=== PATIENT | female | born 1985 | race Two or more races ===

== ENCOUNTER 2023-06-11 20:52 | Emergency (ER) | payer OTHER ==
[~2023-06-11] VITALS: Ht 162.6 cm; Wt 65.9 kg
[2023-06-11] MEDS: TETANUS-DIPTH-ACEL PERTUSSIS 0.5ML SYR Tdap IM ONE (22:04)
[2023-06-11] MEDS: cefTRIAXone W LIDOCAINE 1 GM IM IM ONE (22:06)
[2023-06-11] MEDS: cefTRIAXone SOD 1,000 MG VL ONE (22:07)
[2023-06-11] MEDS: LIDOCAINE 2%HCL (LOCAL ANESTH.) INJ 10ml MDV ONE (22:07)
[2023-06-11] MEDS: LIDOCAINE W/ EPINEPHRINE 2% INJ 20ML VIAL ONE (22:07)
[2023-06-11] MEDS: ACETAMINOPHEN 500 MG TAB PO ONE (22:50)
[2023-06-11 23:37] LABS: Urine Bacteria FEW /hpf (None Seen); Urine Blood Negative /uL (Negative); Urine Budding Yeast OCCASIONAL /hpf (None Seen); Urine Clarity Turbid (Clear); Urine Color Light-Yellow (Yellow); Urine Hyaline Cast FEW /lpf (0 - 2); Urine Mucus FEW (None Seen); Urine Protein, UAD TRACE (Negative); Urine Urobilinogen Normal (Negative); Urine WBC 18 /hpf (0 - 5); Urine pH 7.5 (5.0-9.0)
[2023-06-11 23:39] LABS: Amphetamine Screen, Urine Pos (NEGATIVE); Barbiturate Scree,Urine Neg (NEGATIVE); Benzodiazephine Screen, Urine Neg (NEGATIVE); Cocaine Screen, Urine Pos (NEGATIVE)
[2023-06-11 23:40] LABS: Cannabinoid Screen, Urine Neg (NEGATIVE); Opiate Scree,Urine Neg (NEGATIVE); Phencyclidine Screen, Urine Neg (NEGATIVE)
[2023-06-11 23:49] VITALS: BP 160/105; PULSE 125; RESP 14; O2SAT 98
== END 2023-06-12 00:56 ==
LOC: ER 20:52 → EDBD 20:52 → EDSEX 20:52 → ER 06-12 00:56
DX: S81.812A Laceration without foreign body, left lower leg, initial encounter (principal); F15.10 Other stimulant abuse, uncomplicated; Z59.00 Homelessness unspecified; Z79.899 Other long term (current) drug therapy; X58.XXXA Exposure to other specified factors, initial encounter; Y93.89 Activity, other specified; Y92.89 Other specified places as the place of occurrence of the external cause; Y99.8 Other external cause status
CPT/HCPCS: 12005; 73552; 73562; 80307; 81001; 90471; 90715; 93005; 96372; 99285; J0696; J2001